=== PATIENT | female | born 1935 | race Two or more races ===

== ENCOUNTER 2022-11-17 16:47 | Emergency (ER) | payer MEDICARE, OTHER ==
[~2022-11-17] VITALS: Ht 149.9 cm; Wt 47.6 kg
[2022-11-17] MEDS ORDERED: TDAP [DIPH/PERTUSSIS/TET] 0.5 ML VIAL IM ONE ×2 (18:00→18:06)
[2022-11-17 18:56] VITALS: BP 133/61; TEMP 98.2; O2SAT 99
== END 2022-11-17 18:57 | disposition home or self-care (01) ==
LOC: EDBD 16:47 → ER 16:49
DX: S00.01XA Abrasion of scalp, initial encounter (principal); W01.0XXA Fall on same level from slipping, tripping and stumbling without subsequent striking against object, initial encounter; Y93.01 Activity, walking, marching and hiking; Y92.410 Unspecified street and highway as the place of occurrence of the external cause; Y99.8 Other external cause status
CPT/HCPCS: 99285; 70450; 90471; 90715; A6403